=== PATIENT | female | born 1960 | race Caucasian/White ===

== ENCOUNTER 2018-07-15 10:11 | Outpatient (CLI) | payer OTHER ==
--- NOTE | 2018-07-15 16:51 | MRI ---
MRI ABDOMEN WITH AND WITHOUT IV CONTRAST: Date: 07/15/18 HISTORY: Hepatic cysts. FINDINGS: There are multiple cysts in the liver demonstrating low T1 and high T2 signal and no postcontrast enh ancement. The largest of these in the right lobe measures 12.4 cm and the left lobe measures 6.4 cm. There is a focal serpiginous/lobulated area of postcontrast enhancement in the posterolateral aspect of the right lobe of the liver measuring about 2.7 cm and demonstrating postcontrast enhancement, mos t likely representing an AV malformation. The spleen, pancreas, and adrenal glands are normal. Tiny cysts are seen in the kidneys. The gallbladder is normal. No abnormal biliary ductal dilatation is identified. No free fluid or lymp hadenopathy seen in the abdomen. The bone marrow signal is normal. There is decreased attenuation in the liver parenchyma on the [id number] images compared to the in- phase images consistent with fatty infiltration. IMPRESSION: 1. Hepatic cysts. 2. 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 3. Fatty liver. RECOMMENDATION: A follow-up exam is recommended in 6 months. POS: [place]
== END 2018-07-15 10:12 | disposition home or self-care (01) ==
LOC: SCSMRI 10:11
PROVIDERS: ATTEND Internal Medicine
DX: K76.89 Other specified diseases of liver (principal); K76.0 Fatty (change of) liver, not elsewhere classified
CPT/HCPCS: 74183

== ENCOUNTER 2023-12-13 15:56 | Outpatient (CLI) | payer BC | END 2023-12-13 15:57 | disposition home or self-care (01) | LOC: LABBT 15:56 | PROVIDERS: ATTEND Specialist | DX: Z01.818 Encounter for other preprocedural examination (principal); H72.92 Unspecified perforation of tympanic membrane, left ear | CPT/HCPCS: 85014; 93005; 93010 ==

== ENCOUNTER 2023-12-16 08:41 | Day surgery (SDC) | payer BC ==
[2023-12-13 16:28] VITALS: BMI 27.9
[2023-12-16] MEDS ORDERED: PROPOFOL 40 ML ONE (10:31)
[2023-12-16] MEDS ORDERED: Ciprofloxacin 0.2% Otic (0.25ML CONTAINER) ONE (10:46)
[2023-12-16] MEDS ORDERED: EPINEPHrine 1 MG/ML VIAL ONE (10:46)
[2023-12-16] MEDS ORDERED: Lidocaine 1% (PF) 30 ML VIAL ONE (10:47)
[2023-12-16] MEDS ORDERED: Bacitracin Zinc Ointment 30 gm TUBE ONE (10:47)
[2023-12-16] MEDS ORDERED: fentaNYL PF 100 MCG/2 ML SYRINGE ONE (11:29)
[2023-12-16] MEDS ORDERED: SUGAMMADEX SODIUM 200 MG/2 ML VIAL ONE (11:29)
[2023-12-16] MEDS ORDERED: Dexamethasone 20 MG/5 ML VIAL ONE (11:30)
[2023-12-16] MEDS ORDERED: Ondansetron PF 4 MG/2 ML Vial ONE (11:30)
[2023-12-16] MEDS ORDERED: Rocuronium Bromide 10 MG/ML (10ML VIAL) ONE (11:30)
[2023-12-16] MEDS ORDERED: Lidocaine 1% PF 5 ML VIAL ONE (11:30)
[2023-12-16] MEDS ORDERED: Phenylephrine 10 MG/ML VIAL ONE (12:09)
[2023-12-16] MEDS ORDERED: ePHEDrine Sulfate 50 MG/10 ML VIAL ONE (12:28)
== END 2023-12-16 15:00 | disposition home or self-care (01) ==
LOC: SDC 08:41
PROVIDERS: ATTEND Specialist
PROC: 09U807Z Supplement Left Tympanic Membrane with Autologous Tissue Substitute, Open Approach (ICD-10-PCS; principal; 2023-12-16)
DX: H72.92 Unspecified perforation of tympanic membrane, left ear (principal); H90.2 Conductive hearing loss, unspecified; H90.A21 Sensorineural hearing loss, unilateral, right ear, with restricted hearing on the contralateral side; H81.02 Meniere's disease, left ear; J30.9 Allergic rhinitis, unspecified; H90.A32 Mixed conductive and sensorineural hearing loss, unilateral, left ear with restricted hearing on the contralateral side; I10 Essential (primary) hypertension; Z90.710 Acquired absence of both cervix and uterus; Z79.899 Other long term (current) drug therapy
CPT/HCPCS: J0171; J1100; J2001; J2371; J2405; J2704